=== PATIENT | female | born 1950 | race Caucasian/White ===

== ENCOUNTER → 2017-06-29 | Day surgery (SDC) | payer OTHER ==
[~2017-06-29] MED LIST: ADULT ASPIRIN81 MG PO; ASPIR 8181 MG PO; BIOTIN2500 MCG PO; CALCIUM600 MG PO; CARVEDILOL12.5 MG PO; FENTANYL CITRATE/PF 100MCG/2 ML INJ ONE; HYOSCYAMINE SULFATE 0.5 MG/ML AMP ONE; INSULIN REGULAR, HUMAN 100 UNIT/1 ML 3ML VIAL ONE; JANUMET XR 1001 EACH PO; LOSARTAN POTAS100 MG PO; MAGNESIUM500 MG PO; MIDAZOLAM HCL 2 MG/2 ML VIAL ONE; NEXIUM40 MG PO; OMEGA 3 FISH O1 EACH PO; PROPOFOL IV EMULSION 10 MG/ML 50 ML VIAL ONE; SE TAN PLUS; TERAZOSIN HCL1 MG PO; VITAMIN C1000 MG PO; Z.0.AMARYL4 MG PO; Z.0.FORTAMET500 MG PO; Z.0.JANUVIA100 MG PO; Z.0.LASIX40 MG PO; Z.0.LEVOTHROID75 MCG PO; Z.0.MAGNESIUM250 MG PO; Z.0.NEXIUM40 MG PO; Z.0.NORVASC5 MG PO; Z.0.PRAVACHOL20 MG PO
[2017-06-29 14:52] LABS: WBC,FECAL (FECAL LACTOFERRIN) NEGATIVE (NEGATIVE)
[2017-06-30 11:40] LABS: C DIFFICILE TOXIN A&B AMP PROB NEGATIVE (NEGATIVE)
--- NOTE | 2017-08-14 08:30 | Operative Report ---
DATE OF PROCEDURE: June 29, 2017 REFERRING PHYSICIAN: Dr. Jemma Howe PROCEDURES PERFORMED 1. Esophagogastroduodenoscopy. 2. Colonoscopy with polypectomy. INDICATIONS FOR EGD: Dyspepsia. INDICATIONS FOR COLONOSCOPY: Colorectal cancer screening and diarrhea. MEDICATION: Patient was done under MAC. Please see anesthesiologist's note. PROCEDURE: With the patient in the left decubitus position, the flexible fiberoptic Olympus gastroscope was introduced into the esophagus under direct visualization without any difficulty. The mucosa overlying the distal esophagus revealed some patchy areas of erythema. The GE junction was somewhat nodular and that was biopsied. The scope was then advanced with ease into the stomach, and there was a gastric stapling site noted distal to the GE junction. It was patent. It was traversed with ease. The scope was advanced with ease into the distal stomach. Mucosa overlying the antrum and distal body and revealed some patchy areas of erythema and mild to moderate edema, and biopsies were obtained and sent to stain for H. pylori. The pylorus was of normal contour and shape. It was intubated with ease. The scope was advanced all the way to the 2nd portion of the duodenum. Biopsies were obtained from the proximal 2nd portion to rule out sprue. The mucosa overlying the duodenal bulb appeared to be within normal limits. The scope was then withdrawn back into the stomach, and above the gastric stapling site mucosa overlying the fundus and the cardia appeared to be within normal limits. The scope was then straightened out. It was withdrawn. Patient tolerated the procedure well. IMPRESSION 1. Mild distal esophagitis. 2. Gastroesophageal junction somewhat nodular, biopsied. 3. Status post gastric stapling, intact. 4. Gastritis, biopsied. Biopsies sent to stain for Helicobacter pylori. 5. Rule out sprue. PLAN: Follow up histology. Initiate Protonix 40 mg 1 p.o. q.a.m. a.c. Patient was then turned around. After adequate lubrication of the anal canal, a flexible fiberoptic Olympus colonoscope was inserted into the rectum with ease and advanced all the way to the cecum. Mucosa overlying the cecum appeared to be within normal limits. The ileocecal valve was intubated and the scope was advanced into the terminal ileum. Biopsies were obtained. The scope was then withdrawn back into the colon. Mucosa overlying the ascending and the transverse appeared to be within normal limits. Mild patchy inflammatory changes were noted in the left colon. Random biopsies were obtained. Some diverticular disease was noted in the sigmoid colon. One polyp was snared from the rectum. The scope was then retroflexed into the distal rectum and small internal hemorrhoids were noted, none of which was actively bleeding. The scope was then straightened out. It was subsequently withdrawn after securing an adequate stool specimen that was sent for the appropriate stool studies. Patient tolerated the procedure well. IMPRESSION 1. Mild patchy left-sided colitis. 2. Diverticulosis. 3. Proctitis, mild. 4. Rectal polyps, snared. 5. Internal hemorrhoids, none actively bleeding. PLAN: Follow up histology. Follow up stool studies. Initiate Bentyl 10 mg 1 p.o. t.i.d. Patient will need a followup colonoscopy in 3 years. Job#: [id number] RI cc: JEMMA HOWE MD
== END | disposition home or self-care (01) ==
LOC: OR 08:30
PROVIDERS: ATTEND Internal Medicine Gastroenterology
DX: Z12.11 Encounter for screening for malignant neoplasm of colon (principal); K62.1 Rectal polyp; K29.70 Gastritis, unspecified, without bleeding; K51.50 Left sided colitis without complications; K20.8 Other esophagitis; K57.30 Diverticulosis of large intestine without perforation or abscess without bleeding; Z98.84 Bariatric surgery status; K62.89 Other specified diseases of anus and rectum; K64.8 Other hemorrhoids; E11.9 Type 2 diabetes mellitus without complications; I10 Essential (primary) hypertension; E03.9 Hypothyroidism, unspecified; G47.33 Obstructive sleep apnea (adult) (pediatric); E66.01 Morbid (severe) obesity due to excess calories; Z01.810 Encounter for preprocedural cardiovascular examination; Z79.82 Long term (current) use of aspirin; Z68.41 Body mass index [BMI] 40.0-44.9, adult; Z80.0 Family history of malignant neoplasm of digestive organs
CPT/HCPCS: 36415; 43239; 45380; 45385; 82948; 83630; 83993; 87045; 87177; 87328; 87493; 93005; J1980; J2250

== ENCOUNTER 2021-12-21 10:34 | Emergency (ER) | payer MEDICARE, OTHER ==
[~2021-12-21] VITALS: Ht 167.6 cm; Wt 127.0 kg
[~2021-12-21 10:34] MED LIST changes: +BENADRYL25 M1 PO; -FENTANYL CITRATE/PF 100MCG/2 ML INJ ONE; +FLAXSEED1000 MG PO; +FLONASE ALLERG9.9 ML INH; -HYOSCYAMINE SULFATE 0.5 MG/ML AMP ONE; -INSULIN REGULAR, HUMAN 100 UNIT/1 ML 3ML VIAL ONE; +JANUVIA100 MG PO; +LEVOTHYROXINE50 MCG PO; +LORATADINE10 MG PO; +METOPROLOL SUCC50 MG PO; -MIDAZOLAM HCL 2 MG/2 ML VIAL ONE; +MULTI-VITAMIN1 EACH PO; +OYSTER SHELL 51 EACH PO; -PROPOFOL IV EMULSION 10 MG/ML 50 ML VIAL ONE
[2021-12-21] MEDS ORDERED: Morphine 4mg INJECTION 4 MG/ML INJ IM ONE (11:00)
[2021-12-21] MEDS ORDERED: ONDANSETRON HCL 4 MG ORAL DISINTEGRATING TAB PO ONE (11:00)
[2021-12-21 13:29] VITALS: BP 160/51
== END 2021-12-21 13:36 | disposition home or self-care (01) ==
LOC: ER 10:39
DX: M54.50 Low back pain, unspecified (principal); G89.29 Other chronic pain; M25.552 Pain in left hip; M25.551 Pain in right hip
CPT/HCPCS: 72131; 72192; 99283; J2270; Q0162